=== PATIENT | male | born 1950 | race African-American/Black ===

== ENCOUNTER 2024-06-05 09:05 | Observation (INO) ==
--- NOTE | 2024-05-30 08:59 | Anesthesiology Consultation ---
Date of Service May 30, 2024 Assessment & Plan (1) Encounter for pre-operative examination: Chart Review Chart Review: Acceptable Risk for Surgery and Patient NOT seen in Pre Admission Testing - Patient continuing ASA 81mg perioperatively per urology note 05/16/24 -Infectious Disease screening: Per PAT nursing assessment on 05/23/24. No known infectious disease contacts in past 10 days or current infectious disease sy mptoms. No recent travel outside the country. Last seen by cardio 04/03/24= seen for six month follow up. Feels well... PSA is high and scheduled for prostate surgery at [facility]. SB. Near syncope/recurrent- had implantable loop recorder removed because of battery EOL. CAD- mild and nonobstructive. Lung nodules- following with pulm- resolved. HTN. Depression. HLD. Add Crestor. HTN- well controlled. HLD- encouraged healthy diet and exercise. "Low to moderate cardiac risk for prostatectomy at [facility]." Biopsy of prostate 01/31/24= Done under MAC History Surgery Operation Date: 06/05/24 10:40 Proposed Procedures p Robotic Assisted Laparoscopic Radical Retropubic Prostatectomy, Possible Open, Possible Pelvic Lymph Node Disection, - Juno Mcfarlane MD s Circumcision - Juno Mcfarlane MD Height/Weight Height: 6 ft 1 in Weight: 67.132 kg Allergies Allergy/AdvReac Type Severity Reaction Status Date / Time ceftriaxone [From Rocephin] Allergy Severe Red Man Verified 05/23/24 14:56 Syndrome vancomycin Allergy Severe Red Man Verified 05/23/24 14:56 Syndrome latex Allergy Intermediate Hives Verified 05/23/24 15:26 systemic Medications Home Medications Medication Instructions Recorded Confirmed Last Taken albuterol sulfate 90 mcg/actuation 1 puff inhalation Q4H PRN Wheezing 03/25/23 05/23/24 Unknown aerosol inhaler amlodipine 2.5 mg tablet 2.5 mg PO QAM 03/25/23 05/23/24 01/30/24 06:00 clonidine HCl 0.2 mg tablet 0.2 mg PO Q8H PRN SBP greater than 03/25/23 05/23/24 Unknown 160 loratadine 10 mg capsule 10 mg PO DAILY PRN Allergies 01/16/24 05/23/24 Unknown aspirin 81 mg tablet,delayed 81 mg PO DAILY 1105/23/24 01/25/24 19:00 release tadalafil 20 mg tablet 20 mg PO DAILY PRN Sexual Activity 01/20/24 05/23/24 Unknown zonisamide 25 mg capsule (Zonegran) 75 mg PO HS 03/01/24 05/23/24 Unknown Past Medical History Medical History (Updated 06/01/24 @ 08:56 by Emy Rubio PA-C) CAD (coronary artery disease) nonobstructive per 06/2023 cath Heart valve disease per 05/2023 ECHO: Mild MR. Mild to moderate AR. Moderate TR. Mild KS. 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 Mother No problems noted. Brother No problems noted. Brother No problems noted. Sister No problems noted. Son No problems noted. Son No problems noted. Son No problems noted. Son No problems noted. Daughter No problems noted. Daughter No problems noted. Daughter No problems noted. Past Surgical History Surgical History History of bronchoscopy benign nodule History of right knee joint replacement 12/20/23 History of transurethral resection of prostate Hx of colonoscopy Hx of LASIK Hx of prostate biopsy (01/31/24) 01/31/24: MAC without issue Hx of removal of cyst Kidney Social History Smoking Status: Former smoker Do You Dip or Chew Tobacco: No Smoking End Date: ~10/2023 Hx Alcohol Use: Yes Alcohol type: beer alcohol intake frequency: a few times a month Hx Substance Use: No substance use type: does not use Testing Laboratory Results 05/23/24= WBC: 4.9 H/H: 11.3/36.3 PLATELETS: 170 SODIUM: 137 POTASSIUM: 4.4 CHLORIDE: 105 CO2: 28.0 BUN: 19.0 CREATININE: 0.90 GLUCOSE: 84 URINE CULTURE: No growth after 48 hours Electrocardiogram Date: 05/23/24 Findings: + SB @ (57bpm) Incomplete RBBB Nonspecific T wave abnormality Chest X-Ray Date: 01/17/24 Findings: + NAD COPD No significant change when compared to prior Echocardiogram Date: 06/27/23 EF: 55-60% LV Function: normal RWMA: + none Other Findings: no LVH or no diastolic dysfunction LA mildly dilated Mild MR Mild to moderate AR Moderate TR MIld KS Stress Test Date: 06/27/23 Type: nuclear Myocardial perfusion imaging. There is no transient ischemic dilation of the LV during stress. Moderate sized, moderately severe, partially reversible defect involving the basal mid and apical inferior and apical brian, consistent with a mixture of ischemia and infarction Lexiscan stress EKG was negative for myocardial ischemia (Patient had subsequent cardiac cath - see below) Cardiac Catheterization Date: 07/11/23 LM= no significant disease LAD= mild trivial luminal irregularities throughout the proximal and mid vessel Cx= 40% focal disease RCA= trivial luminal irregularities in the AV groove Conclusion: Mild, nonobstructive CAD. No aortic stenosis Other Testing Head CTA 03/25/23= No large vessel occlusion. No intracranial aneurysm. Neck CTA 03/25/23= No occlusion, hemodynamically significant stenosis, or dissection in the major cervical arteries. Mediastinal lymphadenopathy is partially seen. This is nonspecific but may represent infectious/inflammatory process. Head CT 03/25/23= No acute intracranial abnormality.
[~2024-06-05 09:05] MED LIST: ALLERGY Noted to ORDERED Medication SCH; DEXAMETHASONE SOD INJ 4 MG/ML VIAL ONE; LIDOCAINE 2% 2 ML VIAL/AMP(20MG/ML) INFIL ONE; ONDANSETRON INJ 2 MG/ML 2 ML VIAL ONE; PROPOFOL IV EMULSION 10 MG/ML 20 ML VIAL IV ONE; ROCURONIUM BROMIDE 10 MG/ML 5 ML VIAL IV ONE; fentaNYL citrate PF 100 MCG/2 ML VIAL ONE
[2024-06-05] MEDS: HEPARIN SOD 5,000 UNIT/0.5 ML VIAL SQ SCH ×2 (09:53→21:46)
[2024-06-05] MEDS: LR 15ML/HR IV SCH (09:53)
[2024-06-05] MEDS ORDERED: fentaNYL citrate PF 100 MCG/2 ML VIAL IV PRN (10:34)
[2024-06-05] MEDS ORDERED: ATROPINE SULFATE 0.1 MG/ML 10ML SYR IV PRN (10:34)
[2024-06-05] MEDS ORDERED: ONDANSETRON INJ 2 MG/ML 2 ML VIAL IV PRN ×2 (10:34→16:03)
[2024-06-05] MEDS ORDERED: ePHEDrine sulfate 50 MG/ML AMP IV PRN (10:34)
--- NOTE | 2024-06-05 10:45 | History & Physical Bridge Note ---
Date of Service June 05, 2024 History & Physical Bridge Note I have examined the patient, reviewed the History & Physical and in the interval since the performance of the History & Physical I have noted the following changes of clinical significance: no changes noted
[2024-06-05] MEDS: CLINDA 900 MG **Premixed Bag IV SCH (11:16)
[2024-06-05] MEDS ORDERED: VASOPRESSIN 20 UNIT/ML VIAL ONE (11:43)
[2024-06-05] MEDS ORDERED: ROCURONIUM BROMIDE 10 MG/ML 5 ML VIAL IV ONE (11:48)
[2024-06-05] MEDS ORDERED: fentaNYL citrate PF 100 MCG/2 ML VIAL ONE (12:18)
[2024-06-05] MEDS ORDERED: SUGAMMADEX SODIUM 200 MG/2 ML VIAL IV ONE ×2 (13:00→13:22)
[2024-06-05] MEDS ORDERED: ACETAMINOPHEN 1000 MG/100 ML IV IV ONE (13:07)
[2024-06-05] MEDS ORDERED: HYDROmorphone INJ 2 MG/ML SYR/VIAL ONE (13:22)
[2024-06-05] MEDS: BUPIVACAINE 0.5 % 5 MG/1 ML MPF 30ML VIAL ONE (14:28)
[2024-06-05] MEDS: BUPIVACAINE LIPOSOME 1.3% 266 MG/20 ML VIAL ONE (14:28)
[2024-06-05 15:32] LABS: BUN Creatinine Ratio 15.1 (10-20); Calcium 8.7 mg/dl (8.6-10.3); Creatinine Clr Calc Pharmacy 65.1 ml/min; Potassium 4.1 mmol/L (3.5-5.1)
[2024-06-05 15:41] LABS: Anisocytosis Present; Basophils # (auto) 0.03 K/uL (0.00-0.20); Basophils % (auto) 0.4 %; Eosinophils # (auto) 0.02 K/uL (0.00-0.50); Eosinophils % (auto) 0.3 %; Hematocrit (blood only) 34.2 % (42.0-52.0); Hemoglobin 10.6 g/dl (14.0-18.0); Immature Granulocytes # (auto) 0.02 K/uL (0.01-0.20); Immature Granulocytes % (auto) 0.3 %; Lymphocytes # (auto) 1.03 K/uL (1.20-3.40); Lymphocytes % (auto) 13.8 %; Mean Corpuscular Hemoglobin 21.2 pg (25.0-34.0); Mean Corpuscular Volume 68.3 fL (80.0-100.0); Monocytes % (auto) 1.3 %; Neutrophils # (auto) 6.28 K/uL (1.40-6.50); Neutrophils % (auto) 83.9 %; Ovalocytes 1+; Platelet Count 166 K/uL (130-400); Platelet Estimate Normal (Normal); Poikilocytosis Present; RDW Coefficient of Variation 18.6 % (11.5-14.5); RDW Standard Deviation 42.9 fL (36.4-46.3); Red Blood Count 5.01 M/uL (4.70-6.10); Tear Drop Cells 1+; White Blood Count 7.48 K/ul (4.8-10.8)
--- NOTE | 2024-06-05 15:44 | Operative Report ---
[facility] Post Operative Report Pre & Post Diagnosis Operation Date: 06/05/24 10:40 Pre-Op Diagnosis: Prostate cancer and Redundent Foreskin Post-Op Diagnosis: Prostate cancer and Redundent Foreskin I identified the patient and participated in the time-out.: Yes Procedure Operation Date: 06/05/24 10:40 Actual Procedures p Robotic Assisted Laparoscopic Radical Retropubic Prostatectomy,and Pelvic Lymph Node Dissection(Not Applicable) - Juno Mcfarlane MD s Circumcision(Not Applicable) - Juno Mcfarlane MD Surgeon Juno Mcfarlane MD Gr[employer] Treva Ball Estimated Blood Loss 100 Findings Consistent with Post-Op Diagnosis Specimens 1. Foreskin 2. Periprostatic fat 3. Left pelvic lymph nodes 4. Right pelvic lymph nodes 5. Prostate and seminal vesicles 6. Apical margin of prostate Description of Procedure The patient was identified in the preoperative holding area, appropriate informed consents were reviewed and completed, and he was transported to the operating suite. Subcutaneous heparin was administered in the pre-operative holding area. Upon arrival in the operating suite, he received appropriate antibiotics and general anesthesia. Was positioned in supine position and sterilely prepped and draped. Before beginning the laparoscopic prostatectomy, I elected to perform a circumcision at the patient's request. He has no congenital phimosis and has a pliable foreskin which was easily retracted. I marked a proximal and distal incision circumferentially and began by incising the distal incision followed by the proximal incision. I resected the intervening band of skin before obtaining meticulous hemostasis and reapproximating the 2 cut skin edges. I utilized 3-0 chromic stitches to reapproximate. The majority of these were in vertical mattress fashion. There was an excellent reapproximation of the foreskin at the conclusion of the case. At that time we concluded the circumcision and removed all forward with the prostatectomy. A Estrada catheter was inserted in the sterile field. A Veress needle was passed per umbilicus with uniform insufflation of the abdomen to 15mmHg. He was placed in steep Trendelenburg position. A periumbilical incision was then made to accommodate a 12mm Visiport with 10mm 0degree laparoscope. Inspection of the abdomen was carried out, and there was no evidence of traumatic entry or injury secondary to the Veress needle. After confirming a clear anterior abdominal wall, ports were subsequently placed in standard robotic prostatectomy fashion without incident. To begin the robotic portion of the case, the left lateral aspect of the sigmoid was mobilized off of the left pelvic side wall to allow the pouch of Karan to be appropriately visualized. I then made an incision in the pouch of Karan, overlying the seminal vesicles. Both SVs as well as the ampullae of the vasa were entirely dissected, with the vasa transected 3cm from the prostate. Note, his left SV and vas were considerably diminutive compared to the right side. The medial umbilical ligaments were then controlled with bipolar electrocautery just inferior to the umbilicus. Following cauterization, they were divided utilizing monopolar cautery. A peritoneal incision was carried from this location to the medial aspect of the internal inguinal rings bilaterally with care to avoid opening through the ring. This incision was concluded when the vas deferens was reached. Dissection of the bladder and prostate off of the posterior aspect of the pubic arch was completed allowing full visualization of the prostate. The fat overlying the prostate was removed en bloc and passed off the table as a specimen labeled "periprostatic fat". The endopelvic fascia was cleared during this portion of the procedure, and subsequently opened - first on the right and then the left. The incision through the endopelvic fascia began near the prostate-bladder junction and was carried to the apex with extreme care to preserve all lateral levator musculature as well as the periurethral musculature and sphincter complex. I additionally preserved the puboprostatic ligaments. I then controlled the DVC with a 3-0 V-lock suture in overlapping/figure of 8 fashion. The lymph node dissection was then conducted. External iliac vessels were identified on the pelvic side wall. The packet of fat and lymphatic tissue that resides just under the iliac vein was elevated and off of the vein with a split and roll technique. The packet was dissected laterally to the circumflex vein and distally to the obturator nerve which was preserved. The proximal aspect of the packet was carried towards the bifurcation of the iliac vessels. A combination of monopolar and bipolar cautery were used to assist with control. After completing the dissection on both sides, the packets were collected and passed off of the table as specimens labeled "pelvic lymph nodes". My attention then returned to the prostate, with identification of the bladder neck aided by gentle traction on the Estrada catheter and lateral to medial pressure at the presumed level of the bladder neck with the robotic instruments. An anterior cystotomy was made, the Estrada balloon deflated and the catheter guided through the incision to allow anterior retraction. I attempted to preserve maximal bladder neck musculature as I circumferentially dissected around the bladder neck. After incision through the posterior aspect of the mucosa, the dissection was carried through detrusor muscle until the bilateral ampullae of the vasa were identified. The previously dissected vasa and SVs were brought through the incision and used to elevated the prostate anteriorly. A posterior plane behind the prostate was then developed - splitting Denonvilliers's fascia. This dissection was carried as far as possible towards the apex as well as far as possible laterally. An incision in the lateral prostatic fascia was then made bilaterally to facilitate control of the vascular pedicles and preservation of the nerve bundles. Vasculature running along the posterior/lateral aspect of the prostate was preserved as well as the tissue containing the nerves. The pedicles were then controlled with a series of Weck clips. The apical attachments of the prostate were remaining at that stage. The DVC was divided after control with bipolar cautery over the prostate. Continuous inspection from anterior and lateral views allowed me to closely follow the apical contour of the prostate and maximally preserve urethral length and tissue. Of note, there was a small amount of protuberant tissue on the right side beyond the apex of the prostate and I collected this tissue as a separate specimen and passed off the table as a specimen labeled prostate apexpermanent margin. This tissue predominantly had the appearance of musculature. The prostate was entirely freed at that point, and collected in an EndoCatch bag before being moved out of the field of vision. Hemostasis was confirmed and anastomosis of the bladder and urethra was completed utilizing a double armed V- Lock stitch. A new Estrada catheter was inserted and the anastomosis tested with irrigation. There was no evidence of leak. A tye style stitch was placed bilaterally to functionally marsupialize the area of the lymph node dissection. The robot was undocked, the specimen extracted through expansion of the quentin- umbilical camera port. The fascia was closed with a series of 0-PDS figure of 8 stitches. The right assistant media planner port was closed in two layers - with a figure of 8 0-Vicryl to reapproximate the fascia followed by 4-0 Monocryl to close the skin. Monocryl was used to close all other skin incisions. All wounds were dressed with Dermabond. The case was concluded and the patient taken to the PACU in stable condition. Treva Ball assisted from the beginning of the case including the circumcision end of the radical prostatectomy from start to finish. I attest to the content of the Intraoperative Record and any orders documented therein. Any exceptions are noted below.
--- NOTE | 2024-06-05 15:48 | Anesthesiology Progress Note ---
Date of Service June 05, 2024 Anesthesia Post Procedure Vital Signs Vital Signs: Temp Pulse Pulse Resp BP Pulse Ox O2 Del Method 06/05/24 15:30 96 H 15 146/82 H 95 Room Air 06/05/24 15:20 82 14 133/75 99 Oxymask 06/05/24 15:10 79 12 122/75 100 Oxymask 06/05/24 15:00 77 11 L 136/71 100 Oxymask 06/05/24 14:50 36.2 C L 78 13 141/75 H 100 Oxymask 06/05/24 09:34 36.5 C 60 18 160/81 H 99 Room Air O2 Flow Rate 06/05/24 15:30 06/05/24 15:20 2 06/05/24 15:10 4 06/05/24 15:00 4 06/05/24 14:50 4 06/05/24 09:34 Transfer of Care Handoff Completed per policy Notes Mental Status: alert / awake / arousable and participated in evaluation Patient Amnestic to Procedure: Yes Nausea / Vomiting: adequately controlled Pain: adequately controlled Airway Patency, RR, SpO2: stable & adequate BP & HR: stable & adequate Hydration State: stable & adequate Anesthetic Complications: no major complications apparent
[2024-06-05] MEDS ORDERED: oxyCODONE HCL IR 5 MG TAB (IMMEDIATE RELEASE) PO PRN ×2 (16:03)
[2024-06-05] MEDS ORDERED: MoRPHine SULFATE 2 MG/ML CARP IV PRN ×2 (16:03)
[2024-06-05] MEDS ORDERED: ALBUTEROL HFA 8 GM INHALER INH PRN (16:03)
[2024-06-05] MEDS ORDERED: LORATADINE 10 MG TAB PO PRN (16:06)
[2024-06-05] MEDS: ACETAMINOPHEN 325 MG TAB PO SCH (16:36)
[2024-06-05] MEDS: SODIUM CHLORIDE 0.9% 1,000 ML IV SCH (16:37)
[2024-06-05] MEDS: CLINDAMYCIN/D5W 600 MG/50 ML BAG IV SCH (19:12)
[2024-06-05] MEDS: ZONISAMIDE 100 MG CAPSULE PO SCH (21:46)
[2024-06-05] MEDS: DOCUSATE SODIUM 100 MG CAP PO SCH (21:46)
[2024-06-06 03:16] VITALS: O2SAT 96
[2024-06-06 07:55] VITALS: RESP 20
[2024-06-06 08:13] LABS: Hematocrit (blood only) 32.2 % (42.0-52.0); Hemoglobin 10.1 g/dl (14.0-18.0); Mean Corpuscular Hemoglobin 21.2 pg (25.0-34.0); Mean Corpuscular Hgb Conc 31.4 g/dL (32.0-36.0); Mean Corpuscular Volume 67.6 fL (80.0-100.0); Platelet Count 163 K/uL (130-400); RDW Coefficient of Variation 18.6 % (11.5-14.5); RDW Standard Deviation 42.1 fL (36.4-46.3); Red Blood Count 4.76 M/uL (4.70-6.10); White Blood Count 7.59 K/ul (4.8-10.8)
[2024-06-06 08:14] LABS: Basophils # (auto) 0.01 K/uL (0.00-0.20); Basophils % (auto) 0.1 %; Immature Granulocytes # (auto) 0.03 K/uL (0.01-0.20); Immature Granulocytes % (auto) 0.4 %; Lymphocytes # (auto) 1.12 K/uL (1.20-3.40); Lymphocytes % (auto) 14.8 %; Microcytosis Present; Monocytes # (auto) 0.54 K/uL (0.11-0.59); Monocytes % (auto) 7.1 %; Neutrophils # (auto) 5.89 K/uL (1.40-6.50); Neutrophils % (auto) 77.6 %; Ovalocytes 1+; Poikilocytosis Present
[2024-06-06] MEDS: amLODIPine BESYLATE 5 MG TAB PO SCH (08:15)
[2024-06-06] MEDS: PARoxetine HCL 20 MG TAB PO SCH (08:16)
[2024-06-06] MEDS: ASPIRIN 81 MG ECTAB PO SCH (08:16)
[2024-06-06] MEDS: cloNIDine HCL 0.1 MG TAB PO PRN (08:16)
[2024-06-06 08:40] LABS: BUN Creatinine Ratio 16.3 (10-20); Calcium 8.9 mg/dl (8.6-10.3); Creatinine Clr Calc Pharmacy 70.4 ml/min; Potassium 4.7 mmol/L (3.5-5.1)
--- NOTE | 2024-06-06 10:54 | Urology Progress Note ---
Date of Service June 06, 2024 Assessment & Plan (1) Prostate cancer: (2) Redundant foreskin: Plan Postop day #1 status post prostatectomy and circumcision Doing very well Continue catheterization and discharge home later today Outpatient follow-up for voiding trial Admission and Anticipated Discharge Date Admission Date: June 05, 2024 Subjective Postop day #1 status post prostatectomy and circumcision Doing great Minimal to no pain Is ambulatory His urine is clear Labs all appropriate Anxious to go home Physical Exam Physical Exam: Incisions are all appropriate Minimal residual edema of the foreskin Results & Data Vital Signs (Past 12 Hours) Vital Signs Temp Pulse Resp BP Pulse Ox O2 Del Method 06/06/24 07:54 36.6 C 70 20 158/82 H 96 Room Air 06/06/24 03:15 36.8 C 72 16 125/71 96 Room Air 06/05/24 23:00 36.5 C 18 121/52 L 95 Room Air PG Care Time/CCT Total # of Minutes Spent Total Time Spent with Patient: Total time spent is greater than 50% in coordination of care (as documented) at patient's floor/unit and/or counseling patient: Coding Level of Care Code None Diagnoses Prostate cancer C61 Redundant foreskin N47.8
--- NOTE | 2024-06-06 11:18 | Discharge Summary ---
Date of Service June 06, 2024 Admission HPI Per Admitting Provider Patient with prostate cancer here for robotic assisted laparoscopic prostatectomy and circumcision for redundant foreskin. Principal Diagnosis Prostate cancer, redundant foreskin Discharge Exam Constitutional well developed and well nourished; no acute distress Respiratory normal respiratory effort; no respiratory distress and no labored breathing Gastrointestinal (Abdomen) Inspection/Auscultation: abdomen normal to inspection Musculoskeletal Head/Neck/Chest: normocephalic Neurologic moves all extremities and awake Psychiatric Orientation: alert and oriented x 3 Genitourinary Estrdaa draining clear yellow Discharge Data Allergies Allergy/AdvReac Type Severity Reaction Status Date / Time ceftriaxone [From Rocephin] Allergy Severe Red Man Verified 06/05/24 09:36 Syndrome vancomycin Allergy Severe Red Man Verified 06/05/24 09:36 Syndrome latex Allergy Intermediate Hives Verified 06/05/24 09:36 systemic Procedures Performed Operation Date: 06/05/24 10:40 Actual Procedures p Robotic Assisted Laparoscopic Radical Retropubic Prostatectomy,and Pelvic Lymph Node Dissection(Not Applicable) - Juno Mcfarlane MD s Circumcision(Not Applicable) - Juno Mcfarlane MD Total Time Total Time Spent Total Time Spent (In Minutes): 25 Discharge Plan Discharge Items Patient Disposition: Home - Self-Care Reason For Visit: Malignant Neoplasm of Prostate, Other Disorders of Discharge Diagnosis: Malignant Neoplasm of Prostate, redundant foreskin Activity: Per Instructions section Lifting: No more than 10 pounds Bathing Comment: Okay to shower after discharge, no tub bath or soaking Sexual Activity: Wait until after follow-up appointment Exercise/Sports: Wait until after follow-up appointment Non-emergency contact: Urologist Call non-emergency contact if: your pain is not controlled, you have a fever, your temperature is above 101, your wound has increased redness, your wound has increased drainage and your wound pain has increased Follow-up/Referrals: Juno Mcfarlane MD [Physician] - 06/13/24 10:45 am Satya Albarran DO [Primary Care Provider] - [facility],Nurse [FAKE FOR SCHEDULES] - 06/11/24 10:15 am Diet: Regular Addtl Attending Provider Instructions: Please take all medications as prescribed and keep all follow-ups as scheduled. Please call our office at [phone] with any questions, concerns or need to reschedule appointments for any reason. We are happy to assist you. We have sent an antibiotic to your pharmacy of choice. Please begin antibiotic as prescribed the day BEFORE your scheduled voiding trial at [facility]. Please continue antibiotic every 12 hours through the day AFTER your voiding trial. Activity: We recommend having someone with you for the first few days after surgery to help care for you. For the first 2 weeks after surgery, we would like you to get up and walk around your house. However, we recommend limit physical activity that would increase your heart rate. This will allow your body to rest and heal. Take naps if you feel tired. Don't lift anything heavier than 10 pounds, mow the law or ride a bicycle until your follow-up appointment. Please avoid long car rides. Home Care: Unless directed otherwise, drink 6 to 8 glasses of water a day (enough to keep your urine light colored). This will also help keep a healthy flow of urine. We recommend using a stool softener for the first two weeks to avoid constipation. Estrada Catheter or Suprapubic Catheter care: Keep the catheter well secured with either a leg back or leg strap with large bag. Empty your bag when it's about half full. You may notice some blood in the bag. This is normal after surgery and while the catheter is in place. Use mild soap (such as Dove or Dial) and water to wash the catheter and the head of your penis daily, or more frequently if needed. Return to your normal diet, we encourage good protein intake to promote healing. You may shower as normal. Please avoid tub baths or soaking until catheter removed and incisions well healed. Wearing sweat pants while you have the catheter is recommended, they will be more comfortable. Follow-up Your follow up appointments for having your catheter removed, and follow up with your physician should already be scheduled. If you have any questions regarding this, please contact our office. Your final pathology report will be discussed at your physician follow-up appointment. Call [facility] at [phone] right away if you have any of the following: Chest pain or trouble breathing (call 911 or go to the hospital) Fever of 101F or higher, uncontrolled vomiting Heavy bleeding, clots, or bright red blood from the catheter Catheter that falls out or stops draining Foul-smelling discharge from your catheter Redness, swelling, warmth, or increased pain at your incision site Drainage, pus, or bleeding from your incision Pending Studies at Discharge: Yes (pathology) Stand-Alone Forms: [facility], Smoking Cessation Medications and DC Order Prescriptions: New ciprofloxacin HCl 500 mg tablet 500 mg PO BID Qty: 6 0RF Rx Instructions: Start 1 day prior to catheter removal Continued zonisamide [Zonegran] 25 mg capsule 100 mg PO HS loratadine 10 mg capsule 10 mg PO DAILY PRN (Reason: Allergies) amlodipine 2.5 mg tablet 2.5 mg PO QAM clonidine HCl 0.2 mg tablet 0.2 mg PO Q8H PRN (Reason: SBP greater than 160) albuterol sulfate 90 mcg/actuation HFA aerosol inhaler 1 puff INHALATION Q4H PRN (Reason: Wheezing) aspirin 81 mg Tablet,Delayed Release (Dr/Ec) 81 mg PO DAILY paroxetine HCl 20 mg Tablet 20 mg PO DAILY Rx Instructions: "I haven't started" primidone 50 mg Tablet 25 mg PO HS Rx Instructions: take one half tablet at bedtime; "haven't started yet" prazosin 1 mg Capsule 1 mg PO HS Rx Instructions: one tab HS for 7 days ;then 2 tabs for 7 days; then 3 tabs for 7 days; then 4 tabs for 7 days for nightmares/sleep "haven't started yet" Held tadalafil 20 mg tablet 20 mg PO DAILY PRN (Reason: Sexual Activity) Hold Instructions: Resume on 06/13/24. Hold until follow-up Discharge Orders: Discharge Order (Routine); Ordered 06/06/24 Ordered By: Treva Ball Admission Data Admit Date/Time: 06/05/24 14:40 Attending Provider: Juno Mcfarlane Admit Provider: Juno Mcfarlane Primary Care Provider: Satya Albarran Other Interventions: Discharge Summary Assessment (RN) Last Done: 06/06/24 11:59 Coding Level of Care Code 07056 IN/OBS DISCH 30 MIN/LESS
[2024-06-06 11:26] VITALS: PULSE 71; TEMP 97.7
[2024-06-06 12:00] VITALS: BP 132/74
== END 2024-06-06 13:13 | disposition home or self-care (01) ==
LOC: ASU 09:05 → 3N 14:40 → INTOOBSV 14:40